=== PATIENT | female | born 1980 | race Caucasian/White ===

== ENCOUNTER 2021-12-17 10:54 | Inpatient (IN) | payer BC, SELFPAY ==
[2021-12-17] MEDS ORDERED: Morphine 4 MG/ML VIAL ONE ×2 (11:48→13:33)
[2021-12-17] MEDS ORDERED: Ondansetron PF 4 MG/2 ML Vial ONE ×2 (11:48→13:33)
[2021-12-17 12:12] LABS: #Basophils 0.2 10x3/uL (0.0-0.2); #Eosinphils 0.2 10x3/uL (0.0-0.5); #Monocytes 1.1 10x3/uL (0.0-1.1); #Neutrophils 14.9 10x3/uL (1.5-8.4); %Basophils 0.8 % (0.0-2.0); %Eosinophils 1.1 % (0.0-6.0); %Lymphocytes 11.4 % (18.0-47.0); %Neutrophils 80.2 % (40.0-75.0); Hemoglobin 15.4 g/dL (12.0-15.5); Mean Corpuscular HGB CONC 35.3 g/dL (32.0-36.0); Mean Corpuscular Volume 84.8 fl (81.6-98.3); Mean Platelet Volume 9.9 fl (7.4-10.4); Platelet Count 327 10x3/uL (150-450); RBC Distribution Width 13.3 % (11.5-14.5); Red Blood Cell (RBC) Count 5.14 10x6/uL (3.90-5.03); White Blood Cell (WBC) Count 18.6 10x3/uL (3.5-10.5)
[2021-12-17 12:15] LABS: Bilirubin Neg (Negative); Blood, Urine 50 (Negative); Clarity Clear (Clear); Glucose, Urine (Dipstick) Normal (Negative); Ketone, Urine Negative (Negative); Leukocyte 500 (Negative); Nitrite Negative (Negative); Protein, Urine (Dipstick) Negative (Neg-Trace); Urobilinogen Normal mg/dL (Less than 2)
[2021-12-17 12:17] LABS: Pregnancy Test - Urine (BHCG) Negative (Negative); Pregu Control Background? CLEAR/WHITE (CLR/WHITE); Pregu Control Bar Appear? YES (CONTROL BAR)
[2021-12-17] MEDS ORDERED: Iopamidol 300 61% 100 ML VIAL FS ONE (12:17)
[2021-12-17 12:29] LABS: ALT (SGPT) 25 U/L (8-55); AST (SGOT) 22 U/L (5-34); Albumin 4.3 g/dL (3.5-5.0); Alkaline Phosphatase 75 U/L (40-110); Anion Gap 13 mmol/L (10-20); BUN (Urea Nitrogen) 6 mg/dL (7.0-18.7); Bilirubin, Total 0.6 mg/dL (0.2-1.2); Calc. Creatinine Clearance 0 mL/min (70-130); Calcium 9.3 mg/dL (7.8-10.44); Carbon Dioxide 29 mmol/L (22-29); Chloride 103 mmol/L (98-107); Globulin 2.9 g/dL (2.4-3.5); Glucose 88 mg/dL (70-105); Lipase 10 U/L (8-78); Potassium 4.2 mmol/L (3.5-5.1); Protein, Total 7.2 g/dL (6.0-8.3); Sodium 141 mmol/L (136-145)
[2021-12-17 12:34] LABS: Bacteria/HPF Rare-Few HPF (None Seen); Mucous/LPF Rare LPF (<2+)
[2021-12-17] MEDS ORDERED: Ondansetron ODT 4 MG TAB PO PRN (14:04)
[2021-12-17] MEDS ORDERED: Acetaminophen 325 MG TAB PO PRN (14:04)
[2021-12-17] MEDS ORDERED: Calcium Carbonate 500 MG ChewTAB PO PRN (14:04)
[2021-12-17] MEDS ORDERED: Guaifenesin DM 100-10/5 ML UDCUP PO PRN (14:04)
[2021-12-17] MEDS ORDERED: hydrALAZINE 20 MG/ML VIAL SLOW IVP PRN (14:09)
[2021-12-17] MEDS ORDERED: GUAIFENESIN SF SOLN 200 MG/10 ML UDCUP PO PRN (14:09)
[2021-12-17] MEDS ORDERED: Moisturizing Cream (Eucerin) 113 GM JAR TOP PRN (14:09)
[2021-12-17] MEDS ORDERED: Artificial Tear Sol 15 ML BOT EA EYE PRN (14:09)
[2021-12-17] MEDS ORDERED: Loratadine 10 MG TAB PO PRN (14:09)
[2021-12-17] MEDS ORDERED: metroNIDAZOLE 500 MG/100 ML BAG ONE (15:11)
[2021-12-17] MEDS ORDERED: Fentanyl 100 MCG/2 ML VIAL ONE (15:37)
[2021-12-17 16:44] VITALS: BMI 20.6
[2021-12-17] MEDS: HYDROcodone/Acetaminophen 5/325 mg Tablet PO PRN ×2 (16:52→23:28)
[2021-12-17] MEDS ORDERED: Morphine 4 MG/ML VIAL SLOW IVP SCH (20:30)
[2021-12-17] MEDS: Famotidine/PF 20 mg/2ml Vial SLOW IVP SCH (20:40)
[2021-12-17 22:05] LABS: SARS-CoV-2 NAA Rapid Test Not Detected (NotDetected)
[2021-12-17] MEDS: metroNIDAZOLE 500 MG in Premix Bag 1 BAG IVPB SCH (22:08)
[2021-12-18] MEDS ORDERED: Morphine 4 MG/ML VIAL SLOW IVP SCH (00:45)
[2021-12-18] MEDS: HYDROcodone/Acetaminophen 5/325 mg Tablet PO PRN ×3 (03:38→16:55)
[2021-12-18 03:57] LABS: #Basophils 0.1 10x3/uL (0.0-0.2); #Eosinphils 0.7 10x3/uL (0.0-0.5); #Neutrophils 9.6 10x3/uL (1.5-8.4); %Basophils 0.6 % (0.0-2.0); %Eosinophils 4.7 % (0.0-6.0); %Lymphocytes 22.5 % (18.0-47.0); %Neutrophils 64.9 % (40.0-75.0); Hemoglobin 13.4 g/dL (12.0-15.5); Mean Corpuscular HGB CONC 34.4 g/dL (32.0-36.0); Mean Corpuscular Volume 87.2 fl (81.6-98.3); Mean Platelet Volume 10.2 fl (7.4-10.4); Platelet Count 264 10x3/uL (150-450); RBC Distribution Width 13.2 % (11.5-14.5); Red Blood Cell (RBC) Count 4.46 10x6/uL (3.90-5.03); White Blood Cell (WBC) Count 14.8 10x3/uL (3.5-10.5)
[2021-12-18 04:09] LABS: CRP (Inflammatory) 1.31 mg/dL (= or < 0.5); Phosphorus 3.6 mg/dL (2.3-4.7)
[2021-12-18 04:19] LABS: ALT (SGPT) 17 U/L (8-55); AST (SGOT) 16 U/L (5-34); Albumin 3.3 g/dL (3.5-5.0); Alkaline Phosphatase 71 U/L (40-110); Anion Gap 14 mmol/L (10-20); BUN (Urea Nitrogen) 5 mg/dL (7.0-18.7); Bilirubin, Total 0.9 mg/dL (0.2-1.2); Calc. Creatinine Clearance 85 mL/min (70-130); Calcium 8.2 mg/dL (7.8-10.44); Carbon Dioxide 25 mmol/L (22-29); Chloride 107 mmol/L (98-107); Globulin 2.1 g/dL (2.4-3.5); Glucose 88 mg/dL (70-105); Magnesium 1.8 mg/dL (1.6-2.6); Potassium 3.9 mmol/L (3.5-5.1); Protein, Total 5.4 g/dL (6.0-8.3); Sodium 142 mmol/L (136-145)
[2021-12-18] MEDS: metroNIDAZOLE 500 MG in Premix Bag 1 BAG IVPB SCH ×3 (05:57→21:42)
[2021-12-18] MEDS: Morphine 4 MG/ML VIAL SLOW IVP PRN ×3 (08:32→20:29)
[2021-12-18] MEDS: Ondansetron PF 4 MG/2 ML Vial IVP PRN ×2 (08:34→18:49)
[2021-12-18] MEDS: Famotidine/PF 20 mg/2ml Vial SLOW IVP SCH ×2 (08:35→21:37)
[2021-12-18] MEDS ORDERED: GoLYTELY 4,000 ml Bottle PO SCH ×2 (16:00→16:15)
[2021-12-18] MEDS: Sodium Chloride 0.9% 1,000 ML IV SCH (16:38)
[2021-12-19] MEDS: Ondansetron PF 4 MG/2 ML Vial IVP PRN ×2 (00:15→21:20)
[2021-12-19] MEDS: Morphine 4 MG/ML VIAL SLOW IVP PRN ×4 (00:20→19:34)
[2021-12-19] MEDS ORDERED: Promethazine HCl 12.5 MG in Sodium Chloride 0.9% 50 ML IVPB SCH (03:00)
[2021-12-19] MEDS: Sodium Chloride 0.9% 1,000 ML IV SCH ×2 (03:24→06:52)
[2021-12-19 03:50] LABS: #Basophils 0.1 10x3/uL (0.0-0.2); #Eosinphils 0.7 10x3/uL (0.0-0.5); #Monocytes 0.7 10x3/uL (0.0-1.1); #Neutrophils 6.1 10x3/uL (1.5-8.4); %Basophils 0.8 % (0.0-2.0); %Eosinophils 6.8 % (0.0-6.0); %Lymphocytes 27.4 % (18.0-47.0); %Monocytes 6.5 % (0.0-10.0); %Neutrophils 58.2 % (40.0-75.0); Hemoglobin 12.6 g/dL (12.0-15.5); Mean Corpuscular HGB CONC 34.1 g/dL (32.0-36.0); Mean Corpuscular Hemoglobin 29.9 pg (27.0-33.0); Mean Corpuscular Volume 87.6 fl (81.6-98.3); Mean Platelet Volume 10.3 fl (7.4-10.4); Platelet Count 233 10x3/uL (150-450); RBC Distribution Width 13.1 % (11.5-14.5); Red Blood Cell (RBC) Count 4.21 10x6/uL (3.90-5.03); White Blood Cell (WBC) Count 10.4 10x3/uL (3.5-10.5)
[2021-12-19 04:11] LABS: Anion Gap 15 mmol/L (10-20); BUN (Urea Nitrogen) 4 mg/dL (7.0-18.7); Calc. Creatinine Clearance 85 mL/min (70-130); Calcium 8.1 mg/dL (7.8-10.44); Carbon Dioxide 28 mmol/L (22-29); Chloride 106 mmol/L (98-107); Glucose 88 mg/dL (70-105); Potassium 3.8 mmol/L (3.5-5.1); Sodium 145 mmol/L (136-145)
[2021-12-19] MEDS: metroNIDAZOLE 500 MG in Premix Bag 1 BAG IVPB SCH (06:26)
[2021-12-19] MEDS ORDERED: Lidocaine 2% MPF 10 ML AMP (For Epidural Use) ONE (07:17)
[2021-12-19] MEDS ORDERED: PROPOFOL 20 ML ONE ×3 (07:17→08:46)
[2021-12-19] MEDS: Famotidine/PF 20 mg/2ml Vial SLOW IVP SCH ×2 (09:29→22:02)
[2021-12-19] MEDS ORDERED: methylPREDNISolone Sod Succ 40 MG VIAL IVP SCH (09:30)
[2021-12-19] MEDS: methylPREDNISolone Sod Succ 40 MG VIAL IVP SCH (21:25)
[2021-12-20] MEDS: Morphine 4 MG/ML VIAL SLOW IVP PRN ×4 (00:35→17:26)
[2021-12-20] MEDS: Sodium Chloride 0.9% 1,000 ML IV SCH ×3 (00:40→17:27)
[2021-12-20] MEDS: HYDROcodone/Acetaminophen 5/325 mg Tablet PO PRN ×2 (05:42→20:36)
[2021-12-20] MEDS: Ondansetron PF 4 MG/2 ML Vial IVP PRN (07:54)
[2021-12-20] MEDS: Famotidine/PF 20 mg/2ml Vial SLOW IVP SCH ×2 (07:56→20:38)
[2021-12-20] MEDS: methylPREDNISolone Sod Succ 40 MG VIAL IVP SCH ×2 (07:56→21:36)
[2021-12-20] MEDS: Mesalamine DR 400 mg Capsule PO SCH ×2 (14:41→21:37)
[2021-12-20] MEDS: Zolpidem Tartrate 5 MG TAB PO PRN (20:41)
[2021-12-21] MEDS: Morphine 4 MG/ML VIAL SLOW IVP PRN ×3 (02:04→13:28)
[2021-12-21] MEDS: HYDROcodone/Acetaminophen 5/325 mg Tablet PO PRN ×4 (08:17→20:53)
[2021-12-21] MEDS: Famotidine/PF 20 mg/2ml Vial SLOW IVP SCH (08:17)
[2021-12-21] MEDS: methylPREDNISolone Sod Succ 40 MG VIAL IVP SCH (08:19)
[2021-12-21] MEDS: Mesalamine DR 400 mg Capsule PO SCH ×2 (11:13→15:29)
[2021-12-21] MEDS: Sodium Chloride 0.9% 1,000 ML IV SCH ×3 (11:15→21:04)
[2021-12-21] MEDS: Miconazole 2% Vaginal Cream 45 GM TUBE VAG SCH (18:12)
[2021-12-21] MEDS: Zolpidem Tartrate 5 MG TAB PO PRN (20:55)
[2021-12-21] MEDS: Dicyclomine 10 MG CAP PO PRN (21:02)
[2021-12-22] MEDS: Morphine 4 MG/ML VIAL SLOW IVP PRN ×4 (00:58→23:51)
[2021-12-22] MEDS: HYDROcodone/Acetaminophen 5/325 mg Tablet PO PRN ×4 (06:19→22:03)
[2021-12-22] MEDS: Dicyclomine 10 MG CAP PO PRN ×3 (06:21→22:14)
[2021-12-22] MEDS: Miconazole 2% Vaginal Cream 45 GM TUBE VAG SCH (22:05)
[2021-12-23] MEDS: Sodium Chloride 0.9% 1,000 ML IV SCH ×2 (02:40→16:00)
[2021-12-23] MEDS: Morphine 4 MG/ML VIAL SLOW IVP PRN ×3 (04:18→21:55)
[2021-12-23] MEDS: HYDROcodone/Acetaminophen 5/325 mg Tablet PO PRN ×2 (10:43→17:58)
[2021-12-23] MEDS: Dicyclomine 10 MG CAP PO PRN (10:43)
[2021-12-23 15:15] LABS: Routine O & P Final report (.)
[2021-12-23] MEDS: Ondansetron PF 4 MG/2 ML Vial IVP PRN (19:39)
[2021-12-23] MEDS: Miconazole 2% Vaginal Cream 45 GM TUBE VAG SCH (22:00)
[2021-12-24] MEDS: HYDROcodone/Acetaminophen 5/325 mg Tablet PO PRN ×4 (00:09→21:07)
[2021-12-24] MEDS: Dicyclomine 10 MG CAP PO PRN ×2 (00:09→11:50)
[2021-12-24] MEDS: Sodium Chloride 0.9% 1,000 ML IV SCH ×2 (03:54→16:23)
[2021-12-24 04:42] LABS: #Basophils 0.1 10x3/uL (0.0-0.2); #Eosinphils 0.6 10x3/uL (0.0-0.5); #Monocytes 0.8 10x3/uL (0.0-1.1); #Neutrophils 4.3 10x3/uL (1.5-8.4); %Eosinophils 5.8 % (0.0-6.0); %Lymphocytes 39.3 % (18.0-47.0); %Monocytes 8.2 % (0.0-10.0); %Neutrophils 45.4 % (40.0-75.0); Hemoglobin 13.8 g/dL (12.0-15.5); Mean Corpuscular HGB CONC 34.2 g/dL (32.0-36.0); Mean Corpuscular Hemoglobin 29.6 pg (27.0-33.0); Mean Corpuscular Volume 86.5 fl (81.6-98.3); Mean Platelet Volume 9.9 fl (7.4-10.4); Platelet Count 246 10x3/uL (150-450); RBC Distribution Width 12.9 % (11.5-14.5); Red Blood Cell (RBC) Count 4.66 10x6/uL (3.90-5.03); White Blood Cell (WBC) Count 9.4 10x3/uL (3.5-10.5)
[2021-12-24 05:00] LABS: Anion Gap 13 mmol/L (10-20); BUN (Urea Nitrogen) 4 mg/dL (7.0-18.7); Calc. Creatinine Clearance 95 mL/min (70-130); Calcium 8.5 mg/dL (7.8-10.44); Carbon Dioxide 31 mmol/L (22-29); Chloride 102 mmol/L (98-107); Glucose 77 mg/dL (70-105); Potassium 4.2 mmol/L (3.5-5.1); Sodium 142 mmol/L (136-145)
[2021-12-24] MEDS: Morphine 4 MG/ML VIAL SLOW IVP PRN ×4 (05:54→22:24)
[2021-12-24] MEDS: Ondansetron PF 4 MG/2 ML Vial IVP PRN (06:02)
[2021-12-24] MEDS: Miconazole 2% Vaginal Cream 45 GM TUBE VAG SCH (21:09)
[2021-12-25] MEDS: Morphine 4 MG/ML VIAL SLOW IVP PRN ×2 (03:22→09:02)
[2021-12-25] MEDS: Ondansetron PF 4 MG/2 ML Vial IVP PRN ×2 (03:22→09:01)
[2021-12-25] MEDS: HYDROcodone/Acetaminophen 5/325 mg Tablet PO PRN (06:05)
[2021-12-25] MEDS: Sodium Chloride 0.9% 1,000 ML IV SCH (06:05)
[2021-12-25] MEDS: Dicyclomine 10 MG CAP PO PRN (09:02)
[2021-12-25 13:19] VITALS: BP 121/59; TEMP 98.4
== END 2021-12-25 16:20 | disposition home or self-care (01) | DRG 385 ==
LOC: CSHERS 10:54 → CSHPED 14:57 → CSHPP 12-18 15:24 → OBSVTOIN 12-19 10:26
PROVIDERS: ADMIT Student in an Organized Health Care Education/Training Program; ATTEND Internal Medicine
PROC: 0DJ08ZZ Inspection of Upper Intestinal Tract, Via Natural or Artificial Opening Endoscopic (ICD-10-PCS; principal; 2021-12-19)
PROC: 0DBL8ZZ Excision of Transverse Colon, Via Natural or Artificial Opening Endoscopic (ICD-10-PCS; 2021-12-19)
PROC: 0DBE8ZX Excision of Large Intestine, Via Natural or Artificial Opening Endoscopic, Diagnostic (ICD-10-PCS; 2021-12-19)
DX: K51.911 Ulcerative colitis, unspecified with rectal bleeding (principal); K22.11 Ulcer of esophagus with bleeding; I42.9 Cardiomyopathy, unspecified; N39.0 Urinary tract infection, site not specified; K55.9 Vascular disorder of intestine, unspecified; F32.A Depression, unspecified; D72.829 Elevated white blood cell count, unspecified; K64.8 Other hemorrhoids; N76.0 Acute vaginitis; D12.3 Benign neoplasm of transverse colon; K21.9 Gastro-esophageal reflux disease without esophagitis; E86.0 Dehydration; Z20.822 Contact with and (suspected) exposure to COVID-19; Z98.84 Bariatric surgery status; Z88.8 Allergy status to other drugs, medicaments and biological substances; Z88.2 Allergy status to sulfonamides; Z79.82 Long term (current) use of aspirin; Z79.899 Other long term (current) drug therapy; Z79.1 Long term (current) use of non-steroidal anti-inflammatories (NSAID); Z98.891 History of uterine scar from previous surgery
CPT/HCPCS: 36415; 74177; 80048; 80053; 81003; 81015; 81025; 83630; 83690; 83735; 84100; 85025; 86140; 87045; 87046; 87081; 87086; 87177; 87324; 87427; 87449; 88305; 94760; 96361; 96366; 96367; 96374; 96375; 96376; G0378; J0744; J2270; J2405; J2550; J2704; J2920; J3010; J7050; Q0162; Q9967; S0028; U0002; U0003; U0005

== ENCOUNTER 2023-08-30 09:31 | Outpatient (CLI) | payer BC ==
[~2023-08-30 09:31] MED LIST: Magnevist 469MG/ML 20 ML VIAL ONE
== END 2023-08-30 09:32 | disposition home or self-care (01) ==
LOC: CSHMRI 09:31
PROVIDERS: ATTEND Otolaryngology
DX: H90.3 Sensorineural hearing loss, bilateral (principal); H93.12 Tinnitus, left ear
CPT/HCPCS: 70553

== ENCOUNTER 2025-07-10 12:44 | Emergency (ER) | payer BC ==
[~2025-07-10 12:44] MED LIST changes: +Iopamidol 300 61% 100 ML VIAL FS ONE; -Magnevist 469MG/ML 20 ML VIAL ONE
[2025-07-10] MEDS ORDERED: diphenhydrAMINE 50 MG/ML VIAL ONE (13:23)
[2025-07-10] MEDS ORDERED: Metoclopramide HCl 10 MG (2 mL) VIAL ONE (13:23)
[2025-07-10] MEDS ORDERED: Dexamethasone 10 MG/ML VIAL ONE (13:23)
[2025-07-10 14:12] LABS: Hematocrit 37.5 % (34.9-44.5); Hemoglobin 12.7 g/dL (12.0-15.5); Mean Corpuscular Hemoglobin 28.9 pg (27.0-33.0); Mean Corpuscular Volume 85.4 fL (81.6-98.3); Platelet Count 273 10x3/uL (150-450); Red Blood Cell (RBC) Count 4.39 10x6/uL (3.90-5.03); White Blood Cell (WBC) Count 25.36 10x3/uL (3.5-10.5)
[2025-07-10 14:24] LABS: ALT (SGPT) 18 U/L (Less than 34); AST (SGOT) 21 U/L (11-34); Albumin 3.4 g/dL (3.1-4.5); Alkaline Phosphatase 65 U/L (40-110); Anion Gap 13 mmol/L (10-20); BUN (Urea Nitrogen) 14 mg/dL (7.0-18.7); Bilirubin, Total 0.3 mg/dL (0.3-1.2); Calc. Creatinine Clearance 0 mL/min (70-130); Calcium 9.0 mg/dL (7.8-10.44); Carbon Dioxide 28 mmol/L (22-29); Chloride 105 mmol/L (98-107); Globulin 2.7 g/dL (2.4-3.5); Glucose 78 mg/dL (70-105); Lipase 28 U/L (8-78); Potassium 3.8 mmol/L (3.5-5.1); Sodium 142 mmol/L (136-145)
[2025-07-10 15:19] LABS: Glucose, Urine (Dipstick) Normal (Negative); Leukocyte Negative (Negative); Protein, Urine (Dipstick) Negative (Neg-Trace); Specific Gravity, Urine 1.010 (1.005-1.030)
[2025-07-10 15:38] LABS: MDiff Complete? YES; Platelet Adequacy Comment Appears Adequate; RBC Morphology Within Normal Limits
[2025-07-10 15:44] LABS: Bacteria/HPF 2+ HPF (None Seen); CAUTI Indications for Culture Pelvic or flank pain; RBC/HPF None Seen HPF (0-3); WBC/HPF 0-3 HPF (0-3)
[2025-07-10 15:46] LABS: Urine Culture Reflex No No
== END 2025-07-10 16:33 | disposition home or self-care (01) ==
LOC: CSHERS 12:44
DX: R11.10 Vomiting, unspecified (principal); E27.40 Unspecified adrenocortical insufficiency
CPT/HCPCS: 74177; 80053; 81001; 83690; 85025; 87428; 93005; 93010; 96365; 96366; 96375; J1100; J1200; J2765; Q9967